=== PATIENT | male | born 1960 | race Caucasian/White ===

== ENCOUNTER 2020-08-26 08:23 | Day surgery (SDC) | payer OTHER ==
[~2020-08-26] VITALS: Ht 177.8 cm; Wt 94.7 kg
[~2020-08-26 08:23] MED LIST: ASPI81CH33 PO; ATOR1TAB21 PO; FISH1000 PO; LISI10TA22 PO; METO1TAB87 PO; NS 1,000 ML IV ONE
--- OUTSIDE RECORDS SUMMARY | 2020-08-26 08:28 | CCD ---
Author Author [facility] Organization [facility] Address Unknown Phone Unavailable Care Team Providers Care Passenger Service Representative Name Role Phone LISA RIVERA MD Unavailable Unavailable MIGUELLISA MD Unavailable Unavailable MIGUELLISA MD Unavailable Unavailable LISA RIVERA MD Unavailable Unavailable MIGUELLISA MD Unavailable Unavailable MIGUELLISA MD Unavailable Unavailable MIGUELLISA MD Unavailable Unavailable MIGUELLISA MD Unavailable Unavailable MIGUELLISA MD Unavailable Unavailable MIGUELLISA MD Unavailable Unavailable MIGUELLISA MD Unavailable Unavailable MIGUELLISA MD Unavailable Unavailable MIGUELLISA MD Unavailable Unavailable MIGUELLISA MD Unavailable Unavailable MIGUELLISA MD Unavailable Unavailable LISA RIVERA MD Unavailable Unavailable MIGUELLISA MD Unavailable Unavailable MIGUELLISA MD Unavailable Unavailable MIGUELLISA MD Unavailable Unavailable MIGUELLISA MD Unavailable Unavailable MIGUELLISA MD Unavailable Unavailable LISA RIVERA MD Unavailable Unavailable LISA RIVERA MD Unavailable Unavailable LISA RIVERA MD Unavailable Unavailable LISA RIVERA MD Unavailable Unavailable LISA RIVERA MD Unavailable Unavailable LISA RIVERA MD Unavailable Unavailable LISA RIVERA MD Unavailable Unavailable LISA RIVERA MD Unavailable Unavailable MIGUELLISA MD Unavailable Unavailable LISA RIVERA MD Unavailable Unavailable LISA RIVERA MD Unavailable Unavailable LISA RIVERA MD Unavailable Unavailable LISA RIVERA MD Unavailable Unavailable LISA RIVERA MD Unavailable Unavailable LISA RIVERA MD Unavailable Unavailable LISA RIVERA MD Unavailable Unavailable LISA RIVERA MD Unavailable Unavailable LISA RIVERA MD Unavailable Unavailable LISA RIVERA MD Unavailable Unavailable LISA RIVERA MD Unavailable Unavailable LISA RIVERA MD Unavailable Unavailable MIGUELLISA MD Unavailable Unavailable LISA RIVERA MD Unavailable Unavailable MIGUELLISA MD Unavailable Unavailable MIGUELLISA MD Unavailable Unavailable MIGUEL, GONZALEZ MD Unavailable Unavailable MIGUEL, GONZALEZ MD Unavailable Unavailable MIGUEL, GONZALEZ MD Unavailable Unavailable MIGUEL, GONZALEZ MD Unavailable Unavailable MIGUEL, GONZALEZ MD Unavailable Unavailable MIGUEL, GONZALEZ MD Unavailable Unavailable MIGUEL, GONZALEZ MD Unavailable Unavailable MIGUEL, GONZALEZ MD Unavailable Unavailable Re-disclosure Warning The records that you are about to access may contain information from federally-assisted alcohol or drug abuse programs. If such information is present, then the following federally mandated warning applies: This information has been disclosed to you from records protected by federal confidentiality rules (42 CFR part 2). The federal rules prohibit you from making any further disclosure of this information unless further disclosure is expressly permitted by the written consent of the person to whom it pertains or as otherwise permitted by 42 CFR part 2. A general authorization for the release of medical or other information is NOT sufficient for this purpose. The Federal rules restrict any use of the information to criminally investigate or prosecute any alcohol or drug abuse patient.The records that you are about to access may contain highly sensitive health information, the redisclosure of which is protected by Article 27-F of the [facility] Public Health law. If you continue you may have access to information: Regarding HIV / AIDS; Provided by facilities licensed or operated by the [facility] Office of Mental Health; or Provided by the [facility] Office for People With Developmental Disabilities. If such information is present, then the following [facility] mandated warning applies: This information has been disclosed to you from confidential records which are protected by state law. State law prohibits you from making any further disclosure of this information without the specific written consent of the person to whom it pertains, or as otherwise permitted by law. Any unauthorized further disclosure in violation of state law may result in a fine or long-term sentence or both. A general authorization for the release of medical or other information is NOT sufficient authorization for further disc losure. Encounters Encounter Providers Location Date Indications Data Source(s ) Outpatient Attender: LISA JOY 12:00:00 AM EST - 07/22/2020 10:44:25 AM EST [facility] Outpatient Attender: LISA RIVERA MDReferrer: LISA FOUNTAINSJPYOLANDA 01/22/2020 12:57:02 PM EDT - 01/22/2020 01:54:33 PM EDT [facility] Outpatient Attender: LISA LUNDSJP.KIT 0 12:00:00 AM EDT - 01/22/2020 01:57:39 PM EDT [facility] Outpatient Attender: LISA TALLEY-SJP.KIT 0 11:08:16 AM EST - 07/22/2019 11:59:52 AM EST [facility] Medications Medication Brand Name Start Date Product Form Dose Route Admi nistrative Instructions Pharmacy Instructions Status Indications Reaction Description Data Source(s) Suprep Bowel Prep Kit Suprep Bowel Prep Kit 06/21/2020 12:00:00 AM EST active MEDENT ([facility], ) Magnesium Hydroxide 80 MG/ML Oral Suspension Milk Of Magnesi a 06/21/2020 12:00:00 AM EST ORAL active M EDENT ([facility], ) Metoprolol Tartrate 25 MG Oral Tablet me toprolol tartrate (LOPRESSOR) 25 MG tablet metoprolol tartrate (LOPRESSOR) 25 MG tablet 05/06/2020 12:0 0:00 AM EST 25 mg Oral active Ascending aortic aneurysmBenign essential hypertension Take 1 tablet (25 mg total) by mouth 2 (two) times a day [facility] Ascending aortic aneurysm Benign essential hypertension Lisinopril 10 MG Oral Tablet lisinopril (PRINIVIL,ZEST RIL) 10 MG tablet lisinopril (PRINIVIL,ZESTRIL) 10 MG tablet 05/06/2020 12:00:00 AM EST 10 mg Oral active Ascending aortic aneurysmBenign esse ntial hypertension Take 1 tablet (10 mg total) by mouth daily [facility] Ascending aortic aneurysm Benign essential hypertension Insurance Providers Payer name Policy type / Coverage type Policy ID Covered republican ID Covered republican's relationship to li Policy Li Plan Information [facility] HUMANA [id number] SP [id number] [facility] [id number] [facility] [id number] SP [id number] [employer]uranc e [id number] Problems, Conditions, and Diagnoses Code Display Name Description Problem Type Effective Dates Data Source(s) 17264672 Essential hypertension Essential hypertension Problem 06/21/2020 12:00:00 AM EST MILLY ([facility], ) R07.9 Chest pain, unspecified Chest pain, unspecified Diagno sis 07/22/2020 09:46:45 AM EST [facility] I10 Essential (primary) hypertension Essential (primary) h ypertension Diagnosis 07/22/2020 09:46:45 AM EST [facility] I71.2 Thoracic aortic aneurysm, without ruptur e Thoracic aortic aneurysm, without ruptur Diagnosis 07/22/2020 09:46:45 AM EST [facility] M19.90 Unspecified osteoarthritis, unspecified site Unspecified osteoarthritis, unspecified Diagnosis 07/22/2020 09:46:45 AM EST [facility] E78.5 Hyperlipidemia, unspecified Hyperlipidemia, unspecifie d Diagnosis 07/22/2020 09:46:45 AM EST [facility] Results ID Date Data Source [id number] 01/22/2020 02:05:13 PM EDT [facility] Name Value Range Interpretation Code Description Data Lexi rce(s) Supporting Document(s) &PDF [facility] MBOBJl8zNfHMAwKf24/DAGalIQGdn5GeDYssKZt7WEzzECLpH6ImqEmnVY4FWk4MDEiFXOZtLOmmVyFs gU3 [file] Y8CU++Tx/FV7ns/9vW/Xe4YHXVucXT0UQ+0b9 [file] yYCWUqxpPzjFPy38qqVzVrCuqvsBHGszC8pVTYS5CM8DlRaXgDKx/xbZkJE2/[place]+7Q+7RlAdQuxFOK// SQlHOrfR9ESgATiHllkIp88BN7pnBD80E0/dCC2WCZzhKj/NrEwB+POl3VO1Y/q+g0nSIuinPt90q+TG 4rBe3lIrZt6OfF2g+K4mh+WMnvkI+CY+dnSpy+s/vp construction k/ddwWLaQUbe9uC6w5voVf4IDLJDzkplk0KsG1zCftwYj/QHqpk0Un/Kr34oHFrP/FFOmdW7Y1RBBu0K ZRnphW1MP/UM2pZrWMdNf5767AHqBK9mMDsvbDjkw26ZHPSBeUu/XiY2kQ6E86dLk9Ti1S1cIpe41/SWEDISH [file] AgICAgICAgICAgICAgICAgICAgICAgICAgICAgICAgICAgICAgICAgICAgICAgICAgICAgICAgICANCi AgICAgICAgICAgICAgICAgICAgICAgICAgICAgICAg ICAgICAgICAgICAgICAgICAgICAgICAgICAgICAgICAgICAgICAgICAgICAgICAgICAgICAgICAgICAg ICAgICAgICANCiAgICAgICAgICAgICAgICAgICAgICAgICAgICAgICAgICAgICAgICAgICAgICAgICAg ICAgICAgICAgICAgICAgICAgICAgICAgICAgICAgIC AgICAgICAgICAgICAgICAgICANCiAgICAgICAgICAgICAgICAgICAgICAgICAgICAgICAgICAgICAgIC AgICAgICAgICAgICAgICAgICAgICAgICAgICAgICAgICAgICAgICAgICAgICAgICAgICAgICAgICAgIC ANCiAgICAgICAgICAgICAgICAgICAgICAgICAgICAg ICAgICAgICAgICAgICAgICAgICAgICAgICAgICAgICAgICAgICAgICAgICAgICAgICAgICAgICAgICAg ICAgICAgICAgICANCiAgICAgICAgICAgICAgICAgICAgICAgICAgICAgICAgICAgICAgICAgICAgICAg ICAgICAgICAgICAgICAgICAgICAgICAgICAgICAgIC AgICAgICAgICAgICAgICAgICAgICANCiAgICAgICAgICAgICAgICAgICAgICAgICAgICAgICAgICAgIC AgICAgICAgICAgICAgICAgICAgICAgICAgICAgICAgICAgICAgICAgICAgICAgICAgICAgICAgICAgIC AgICANCiAgICAgICAgICAgICAgICAgICAgICAgICAg ICAgICAgICAgICAgICAgICAgICAgICAgICAgICAgICAgICAgICAgICAgICAgICAgICAgICAgICAgICAg ICAgICAgICAgICAgICANCiAgICAgICAgICAgICAgICAgICAgICAgICAgICAgICAgICAgICAgICAgICAg ICAgICAgICAgICAgICAgICAgICAgICAgICAgICAgIC AgICAgICAgICAgICAgICAgICAgICAgICANCiAgICAgICAgICAgICAgICAgICAgICAgICAgICAgICAgIC AgICAgICAgICAgICAgICAgICAgICAgICAgICAgICAgICAgICAgICAgICAgICAgICAgICAgICAgICAgIC AgICAgICANCjw/wRPpH7pguEAghzJ8O0etYh1RWc9C PZ9qx0UxTRRdAOizeeXrQnrCXiBdBRCzHhkTThu5VQknCR4LeGIvC0DuT3JaKExyAI1CKVNxMKJfrDTc ULGvQSOkToW5VINgPNssBX5VpYWlPNfkHFApJQDgQyImOGYyJLSvVZWiQN9ZKPCvO251phAqUl8YBm8O MmShDR2ggh9IYfZxAOLvFxsJGjy7VMfkXP0BmWDyG2 MwpWKcp9jFQpBrX0FODFQdPUCwGw3FDPErAhUfEMPxRHlyEA8cFKSvDTFFzYfgqwC3WF5JZA3fwxFyPP 7PGzNlUh6aUc3KAjVxX4WsJ1LaNHZhJBQRSMssTU7OSPYmOOJ5BRPmRUKiLDZZClNpE26hQO1VL0Lso3 2zZnL1NBLxToEsDEtuQC84dSczlhHocHHokXkdOF3Q Cj4+HShyliPoWdfXKlatRPUWPuSqMqUXQwAjBQZtAKVvVUSyUkM7MkXvXv1FQLPeQQJvNVMtNpDlVUOs UJLuFSsbQCIlKWc3RmM5MKMmXIPpRZ9JLwQiVXZfTFB6DHCvXQNjQUFvwz0OYBNyKFLrNYH3PtGjYQBl BYYmJGxkGNMdUJRjUuY1BGTtUGMtUV2EUlJhRHTqEP O4PgSgATXePDQvas7MDDFfCVZbEuP5XsBgRAUyGZTvQLqcVKLeTCR2IBTtWAMgTRYoNW5BMuKcJWVgUB b1TvJgETKqDSEjvl8RGRMdHCIoHqz9WVEvGIOsWZDwARdvFANjSLW1CBHhTHPeVPZqEH9KQtDiEFYdFC trVzwsRMZsBFGngp4MHSCwOXZhKOCdAQHhVYLmRDGp RKcsOIVxFHXtVkN4KXVpZIFqHY0SRyLwHRIvTMY4GqDiKFLhRCUhjk7ILOKkUYAnRTP9ALJyJEFoLPKj LOelIGGxDQK3FSQ0CDMdZBOyWT1RTdKbASMoILQ7UeWzMCDmWXDwrv9ZSTOmFLWrEhL4LGJlJPRbDVDr AIofCXMuOYD9Mji3MCFfCJEbYL5YFkPrHADoUIY9Ha HnVKNtQYOryp5ZAOYcFYSjXcA8PjDnADUtEFEdPQgbNEJgHHO9LLR6JMLpBTMgVT2EXxRyCZYgATi5Xe SfGZAvEGMbuw0YWKSoXJHvCwKjMPYeGXSdGRDbJEtrUGCwYPK0YCZwYHKzIZAtFU6QTfSaNOJbXzV5Et VsWLChQFVzyp7IFWArFRK7BCvwCsAgBVByYDIgWKkq NTHxKQC0Ofj9JDAdTHYbVB7WYtZbSPCvBgX2AWZwDQVdLWDlnh6IILKlVUK9SsytYkZoWJWeZZJvHPsl MLJlNOl3EQR2JJKmOPKzUC3RHpRhKZPjWRd9QNDmTQBoCFMayq6OJGMzSOO5SRH6IOHyCDGgPQXfLRtd FUEhOBZmNlE0EZLaIRByIR7FIkLoEKyoSFQGMlv5US ygN4g4QITtJt2BY4Ftr8DpPdQeWLWIIDjuVP3naeAyQAYpPc4WT1oKPswaLWq4Q6T0LRdnRcErVZM4Sr Z5F3F7IkJyDQIiRXI5PQ2hCZS7XLTtKQV7S0LjWKD7CCggQvPmRSmtAeY6AgCfDQHzItWyHB4KOp9GHj C4RFH4bCCwMr0OCKGyAIIfUJuvZWHUBs6L Procedure Social History Code Duration Value Status Description Data Source(s ) Alcohol intake 07/22/2020 12:00:00 AM EST Yes completed [facility] Smoking 07/22/2020 12:00:00 AM EST Never smoker completed Never s moker [facility] Vital Signs ID Date Data Source UNK Name Value Range Interpretation Code Description Data Source(s) Diastolic blood pressure 80 mm[Hg] 80 mm[Hg] [facility] Systolic blood pressure 120 mm[Hg] 120 mm[Hg] [facility] Oxygen saturation in Arterial blood by Pulse oximetry 97 % 97 % [facility] Body mass index (BMI) [Ratio] 31.57 kg/m2 31.57 kg/m2 [facility] Body weight 99.791 kg 99.791 kg [facility] Body height 177.8 cm 177.8 cm [facility] Heart rate 66 /min 66 /min [facility] Body surface area Derived from formula 2.16 m2 2.16 m2 [facility] ([facility], ) Body weight 97.524 kg 97.524 kg [facility] ([facility], ) [place] body weight 166 [lb_av] 166 [lb_av] MEDEN T ([facility]) Body mass index (BMI) [Ratio] 30.4 kg/m2 30.4 k g/m2 [facility] ([facility], ) Body weight 215.00 [lb_av] 215.00 [lb_av] MEDEN T ([facility], ) Body height 70.5 [in_i] 70.5 [in_i] [facility] ([facility]) 5'10.50" Diastolic blood pressure 82 mm[Hg] 82 mm[Hg] [facility] ([facility]) Systolic blood pressure 132 mm[Hg] 132 mm[Hg] M ADAMS ([facility], ) Patient Treatment Plan of Care Planned Activity Planned Date Details Description Data Source (s) Lisinopril 10 MG Oral Tablet 05/06/2020 12:00:00 AM [facility] Metoprolol Tartrate 25 MG Oral Tablet 05/06/2020 12:00:00 AM [facility]
--- OUTSIDE RECORDS SUMMARY | 2020-08-26 08:28 | CCD | Continuity of Care Document ---
Author Author Augustin COOPER Organization Unknown Address [address], [address] [place] [address] Phone [phone] Care Team Providers Care Hair Salon Manager Name Role Phone Gaston Burdick D.O. AUTM Unavailable AUTM Unavailable Problems Active Problems Provider Date Essential hypertension NATHAN Sarabia Onset: Social History Type Date Description Comments Sex Unknown ETOH Use 1-2 A Week Tobacco Use Start: Unknown Non Smoker Allergies, Adverse Reactions, Alerts Description No Known Drug Allergies Medications Active Medications SIG Qnty Indications Ordering Provide r Date Suprep Bowel Prep Kit 17.5-3.13-1.6GM/177ML Solution take per doctor's bowel prep instructions. 354ml Z12.1 1 Giuliano Pepe MD 06/21/2020 Milk Of Magnesia 1200mg/15ML Suspe nsion take 45 milliliters by mouth as directed on colonoscopy prep sheet. Z12.11 Giuliano Pepe MD 06/21/2020 Metoprolol Tartrate 25mg Tablets bid Unknown Lisinopril 10mg Tablets 1 by mouth every day Unknown Atorvastatin Calcium 20mg Tablets 1 by mouth every day Unknown Aspirin [address] one tab by mouth once a day Unknown Fish Oil 435mg Capsules [address] Unknown Multivitamin Tablets 1 by mouth every day Unknown Glucosamine 750mg Tablets 1 d aily Unknown Immunizations Description No Information Available Vital Signs Date Vital Result Comment 06/21/2020 12:59pm BP Systolic 132 mmHg BP Diastolic 82 mmHg Height 70.5 inches 5'10.50" Weight 215.00 lb BMI (Body Mass Index) 30.4 kg/m2 [place] Body Weight 166 lb Weight 97.524 kg BSA (Body Surface Area) 2.16 m2 Results Description No Information Available Procedures Description No Information Available Medical Devices Description No Information Available Encounters Description No Information Available Assessments Date Code Description Provider 06/21/2020 Z12.11 Encounter for screening for sadia gnant neoplasm of colon NATHAN Sarabia Plan of Treatment 06/21/2020 - Raquel Meera NATHAN Cooper* Z12.11 Encounter for screening for malignant neoplasm of colon * * New Medication:* Suprep Bowel Prep Kit 17.5-3.13-1.6 GM/177ML * Milk Of Magnesia 1200 mg/15ML * New Orders:* Colonoscopy, Ordered: 06/21/20 * Comments:* Will arrange for colonoscopy. Reviewed risks and benefits of the procedure, as well as other options, with the patient. Bowel prep procedure was discussed with patient, as well as risks and side effects associated with the bowel prep. Patient verbalized understanding of all of the above and is in agreement to proceed. Patient will seek medical attention for any acute changes. Will monitor. * Follow up:* As scheduled, sooner if needed. Functional Status Description No Information Available Mental Status Description No Information Available Referrals Refer to Dr Reason for Referral Status Appt Date Josué Ross M.D. Office Consult New or Agustin lished PT - 01 - 05/06/2020 - 11/02/2020 Office/Outpatient Visit - 03 - 05/06/2020 - 05/06/2021 Dx: Encounter screening malignant neoplasm of colon Scheduled 06/21/[address] [place] [address], [facility] [address] [place] [address] [phone]
[2020-08-26] MEDS ORDERED: LIDOCAINE 2% 100MG/5ML SDV (FOR ANES.) As Ordered ONE (08:41)
[2020-08-26] MEDS ORDERED: propofoL 200 MG/20 ML VIAL As Ordered ONE (08:41)
[2020-08-26] MEDS ORDERED: VITMTA PO (09:02)
[2020-08-26] MEDS ORDERED: CIDA500T2 PO (09:02)
[2020-08-26] MEDS ORDERED: ePHEDrine SULFATE 25 MG/5 ML(5MG/ML) SYRINGE As Ordered ONE (10:30)
--- NOTE | 2020-08-26 10:40 | ROOR ---
Patient Name: Augustin Mejia Procedure Date: 08/26/2020 10:16 AM Date of : 1960 Age: 59 Room: [facility] Gender: Male Note Status: Finalized Procedure: Colonoscopy Indications: Screening for colorectal malignant neoplasm Providers: Giuliano PEPE MD Referring MD: SILVANA PINA MD Requesting Provider: Medicines: Monitored Anesthesia Care Complications: No immediate complications. Procedure: Pre-Anesthesia Assessment: - The heart rate, respiratory rate, oxygen saturations, blood pressure, adequacy of pulmonary ventilation, and response to care were monitored throughout the procedure. The Colonoscope was introduced through the anus and advanced to the terminal ileum, with identification of the appendiceal orifice and IC valve. The colonoscopy was performed without difficulty. The patient tolerated the procedure well. The quality of the bowel preparation was good. Findings: The perianal and digital rectal examinations were normal. Retroflexion in the right colon was performed. A 4 mm polyp was found in the splenic flexure. The polyp was sessile. The polyp was removed with a cold snare. Resection and retrieval were complete. Small Internal Hemorrhoids. The exam was otherwise without abnormality on direct and retroflexion views. Impression: - One 4 mm polyp at the splenic flexure, removed with a cold snare. Resected and retrieved. - Small Internal Hemorrhoids. - The examination was otherwise normal on direct and retroflexion views. Recommendation: - Repeat colonoscopy in 5 years for surveillance. Procedure Code(s): --- Professional --- 83795, Colonoscopy, flexible; with removal of tumor(s), polyp(s), or other lesion(s) by snare technique Diagnosis Code(s): --- Professional --- K63.5, Polyp of colon Z12.11, Encounter for screening for malignant neoplasm of colon CPT copyright 2019 [employer]. All rights reserved. The codes documented in this report are preliminary and upon director of finance review may be revised to meet current compliance requirements. Giuliano Pepe MD Giuliano PEPE MD 08/26/2020 10:40:31 AM Electronically signed by Giuliano PEPE MD Number of Addenda: 0 Note Initiated On: 08/26/2020 10:16 AM Estimated Blood Loss: Estimated blood loss: none.
[2020-08-26 11:14] VITALS: BP 129/69
== END 2020-08-26 11:13 | disposition home or self-care (01) ==
LOC: M OPP 08:23
PROVIDERS: ATTEND Internal Medicine Gastroenterology
DX: Z12.11 Encounter for screening for malignant neoplasm of colon (principal); K63.5 Polyp of colon; I10 Essential (primary) hypertension; Z79.82 Long term (current) use of aspirin; Z79.899 Other long term (current) drug therapy

== ENCOUNTER 2025-05-17 10:02 | Emergency (ER) | payer OTHER ==
[~2025-05-17] VITALS: Ht 177.8 cm; Wt 90.1 kg
[~2025-05-17 10:02] MED LIST changes: +CIDA500T2 PO; -NS 1,000 ML IV ONE; +VITMTA PO
[2025-05-17] MEDS ORDERED: LOSA50TA28 (10:14)
[2025-05-17] MEDS ORDERED: SILVER NITRATE APPLICATOR (1 = QTY 10) TOP ONE (11:25)
[2025-05-17] MEDS: SILVER NITRATE APPLICATOR (1 = QTY 10) TOP ONE (11:40)
[2025-05-17] MEDS ORDERED: OXYM15SP2 (11:49)
[2025-05-17 11:58] VITALS: BP 140/63; TEMP 97.7; O2SAT 99
== END 2025-05-17 12:07 | disposition home or self-care (01) ==
LOC: M ED 10:02
DX: R04.0 Epistaxis (principal); I10 Essential (primary) hypertension; Z79.1 Long term (current) use of non-steroidal anti-inflammatories (NSAID); Z79.899 Other long term (current) drug therapy; Z79.810 Long term (current) use of selective estrogen receptor modulators (SERMs)